=== PATIENT | female | born 1960 | race Asian ===

== ENCOUNTER 2017-08-31 14:12 | Emergency (ER) | payer OTHER ==
[~2017-08-31] VITALS: Ht 162.6 cm; Wt 59.0 kg
[2017-08-31 14:37] VITALS: BP_SYST 110
[2017-08-31] MEDS ORDERED: ONDANSETRON HCL 4 MG/2 ML VIAL IVP ONE (16:45)
[2017-08-31] MEDS ORDERED: HYDROmorphone 1 MG INJ. 1 MG/ML AMPUL IVP ONE (16:45)
[2017-08-31 18:31] VITALS: BP_SYST 110
== END 2017-08-31 18:31 | disposition home or self-care (01) ==
LOC: SED 14:12
DX: G89.29 Other chronic pain (principal); M54.5 Low back pain; I10 Essential (primary) hypertension; E78.00 Pure hypercholesterolemia, unspecified
CPT/HCPCS: 74000; 96374; 96375; 99284; J1170; J2405

== ENCOUNTER 2021-04-26 21:03 | Observation (INO) | payer BC, SELFPAY ==
[~2021-04-26] VITALS: Ht 162.6 cm; Wt 59.0 kg
[2021-04-26 21:03] VITALS: BP_SYST 137
[2021-04-26] MEDS ORDERED: NALOXONE HCL 2 MG/2 ML SYR IVP ONE (21:30)
[2021-04-26 21:56] LABS: INR 0.9 (0.8-1.2); PROTHROMBIN TIME 9.9 SECS (9.5-12.5)
[2021-04-26 21:59] LABS: ANION GAP 6 (5-15); CALCIUM 8.8 mg/dL (8.4-11.0); CHLORIDE 103 mmol/L (98-107); CREATININE 0.86 mg/dL (0.55-1.30); GLUCOSE 130 mg/dL (70-99); POTASSIUM 3.7 mmol/L (3.5-5.1); SODIUM SERUM 140 mmol/L (136-145); UREA NITROGEN, BLOOD 12 mg/dL (8-21)
[2021-04-26 22:00] LABS: BASOPHILS # (AUTO) 0.1 K/uL (0.0-0.2); BASOPHILS % (AUTO) 0.8 % (0.0-2.0); EOSINOPHILS # (AUTO) 0.1 K/uL (0.0-0.4); EOSINOPHILS % (AUTO) 1.1 % (0.0-4.0); HEMATOCRIT 37.4 % (36-48); HEMOGLOBIN 12.2 g/dL (12.0-16.0); LYMPHOCYTES # (AUTO) 3.5 K/uL (1.0-5.5); MEAN CORPUSCULAR HEMOGLOBIN 30 pg (27-31); MEAN CORPUSCULAR HGB CONC 33 % (32-36); MEAN CORPUSCULAR VOLUME 91 fL (79.0-98.0); MONOCYTES # (AUTO) 0.4 K/uL (0.0-1.0); MONOCYTES % (AUTO) 4.8 % (1.7-9.3); NEUTROPHILS # (AUTO) 4.6 K/uL (1.8-7.7); NEUTROPHILS % (AUTO) 53.3 % (40.0-70.0); PLATELET COUNT (AUTO) 214 K/uL (130-430); RED BLOOD CELL COUNT(AUTO) 4.13 MIL/uL (4.2-6.2); RED CELL DISTRIBUTION WIDTH 13.5 % (9.0-15.0); WHITE BLOOD COUNT (AUTO) 8.7 K/uL (4.8-10.8)
[2021-04-26 22:05] LABS: ALANINE AMINOTRANSFERASE 19 U/L (12-78); ALBUMIN 3.3 g/dL (3.4-4.8); ASPARTATE AMINOTRANSFERASE 13 U/L (10-37); TOTAL BILIRUBIN 0.3 mg/dL (0.0-1.0)
[2021-04-26 22:09] LABS: GFR AFRICAN AMERICAN 87 mL/min (>90)
[2021-04-26 22:10] LABS: ALCOHOL, BLOOD < 3 mg/dL (<10)
[2021-04-26 22:11] LABS: ACETAMINOPHEN 50 ug/mL (1-30)
[2021-04-26 22:21] LABS: ACETONE, SERUM NEGATIVE (NEGATIVE)
[2021-04-26] MEDS ORDERED: ACETYLCYSTEINE 20% 4 ML VIAL (RT) INH ONE (22:30)
[2021-04-26] MEDS ORDERED: ACETYLCYSTEINE 20% 4 ML VIAL (RT) ONE (22:39)
[2021-04-26] MEDS ORDERED: ALBUTEROL SULFATE 0.083% 2.5 MG/3 ML VIAL.NEB INH ONE (22:39)
[2021-04-26] MEDS ORDERED: ONDANSETRON HCL 4 MG/2 ML VIAL IVP ONE (22:45)
[2021-04-26] MEDS ORDERED: NACL 0.9% 1,000 ML IV ONE (22:45)
[2021-04-26] MEDS ORDERED: ACETYLCYSTEINE IV ONE (23:00)
[2021-04-26] MEDS ORDERED: D5W IV ONE (23:00)
[2021-04-26] MEDS ORDERED: COMMUNICATION ORDER XX ONE (23:00)
[2021-04-26] MEDS ORDERED: ACTIVATED CHARCOAL 50 GM ORAL.SUSP PO ONE (23:15)
[2021-04-27] MEDS ORDERED: D5W IV ONE ×2
[2021-04-27] MEDS ORDERED: ACETYLCYSTEINE IV ONE ×2
[2021-04-27] MEDS ORDERED: ACETYLCYSTEINE IV 6000 MG/30 ML VIAL IV ONE (00:23)
[2021-04-27 00:33] LABS: CREATININE 0.88 mg/dL (0.55-1.30); POTASSIUM 3.6 mmol/L (3.5-5.1)
[2021-04-27 00:36] LABS: INR 0.9 (0.8-1.2); PROTHROMBIN TIME 9.8 SECS (9.5-12.5)
[2021-04-27 00:39] LABS: ALBUMIN 3.4 g/dL (3.4-4.8); TOTAL BILIRUBIN 0.3 mg/dL (0.0-1.0)
[2021-04-27] MEDS ORDERED: fentaNYL CITRATE/PF 100 MCG/2 ML AMP IVP ONE (00:45)
[2021-04-27] MEDS: D5W IV ONE ×2 (01:04→10:33)
[2021-04-27] MEDS: ACETYLCYSTEINE IV ONE ×2 (01:04→10:33)
[2021-04-27 08:40] LABS: BARBITURATE, URINE NEGATIVE (NEG <=200); BENZODIAZEPINE, URINE NEGATIVE (NEG <=150); CANNABINOID, URINE NEGATIVE (NEG <=50); COCAINE, URINE NEGATIVE (NEG <=150); METHAMPHETAMINES SCREEN,URINE NEGATIVE (NEG <=500); OPIATE, URINE NEGATIVE (NEG <=100); PHENCYCLIDINE SCREEN,URINE NEGATIVE (NEG <=25); URINE AMPHETAMINE NEGATIVE (NEG <=500); URINE METHADONE NEGATIVE (NEG <=200)
[2021-04-27] MEDS: NACL 0.9% 1,000 ML IV SCH ×2 (08:40→10:32)
[2021-04-27 08:41] VITALS: BP_SYST 131
[2021-04-27 08:41] LABS: UR TRICYCLIC ANTIDEPRESSANTS NEGATIVE (NEG <=300); URINE OXYCODONE SCREEN POSITIVE (NEG <=100); URINE PROPOXYPHENE SCREEN NEGATIVE (NEG <=300)
[2021-04-27] MEDS ORDERED: ONDANSETRON HCL 4 MG/2 ML VIAL IVP PRN (10:45)
[2021-04-27] MEDS ORDERED: DOCUSATE SODIUM 100 MG CAPSULE PO PRN (10:45)
[2021-04-27] MEDS ORDERED: ACETAMINOPHEN 325 MG TABLET PO PRN (10:45)
[2021-04-27] MEDS ORDERED: POTASSIUM CHLORIDE 20 MEQ TAB.PRT.SR PO PRN (10:45)
[2021-04-27] MEDS ORDERED: MUPIROCIN 2% TOPICAL OINTMENT 22 GM NS PRN (10:45)
[2021-04-27] MEDS ORDERED: MAGNESIUM SULFATE 50 ML IV PRN (10:45)
[2021-04-27] MEDS ORDERED: ONDANSETRON HCL 4 MG/2 ML VIAL ONE (11:15)
[2021-04-27 12:00] VITALS: BP_SYST 128
[2021-04-27 16:00] VITALS: BP_SYST 130
[2021-04-27 16:48] VITALS: BP_SYST 137
[2021-04-27 20:00] VITALS: BP_SYST 94
[2021-04-27] MEDS ORDERED: LORazepam 2 MG/ML VIAL IVP ONE (22:30)
[2021-04-28] VITALS: BP_SYST 113
[2021-04-28] MEDS: NACL 0.9% 1,000 ML IV SCH (01:38)
[2021-04-28 07:37] VITALS: BP_SYST 136
[2021-04-28 08:44] LABS: ALBUMIN 2.8 g/dL (3.4-4.8); BILIRUBIN,DIRECT 0.2 mg/dL (0.0-0.3); TOTAL BILIRUBIN 0.3 mg/dL (0.0-1.0)
[2021-04-28 08:57] VITALS: BP_SYST 136
== END 2021-04-28 09:27 | disposition home or self-care (01) ==
LOC: SED 21:03 → STU 04-27 02:00 → SMU 04-27 09:08 → STU 04-27 09:28
PROVIDERS: ADMIT General Practice; ATTEND General Practice
DX: T40.2X1A Poisoning by other opioids, accidental (unintentional), initial encounter (principal); Z20.822 Contact with and (suspected) exposure to COVID-19; G92 Toxic encephalopathy; G89.29 Other chronic pain; M54.5 Low back pain; M47.816 Spondylosis without myelopathy or radiculopathy, lumbar region; I10 Essential (primary) hypertension; E78.00 Pure hypercholesterolemia, unspecified; E87.2 Acidosis; F11.20 Opioid dependence, uncomplicated; Z98.1 Arthrodesis status; Z79.899 Other long term (current) drug therapy
CPT/HCPCS: 36415 ×2; 70450; 71045; 76376; 80053 ×2; 80076; 80307; 82009; 82140; 82550; 83605; 84484 ×2; 85025; 85610 ×2; 85730; 87426; 93005; 94640; 96361 ×2; 96365; 96366 ×3; 96375; 99291; G0378 ×2; G0480; G0482; J0132; J2405; J7060; J7608; J7613; 99285; G0481